=== PATIENT | female | born 2000 | race Caucasian/White ===

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

== ENCOUNTER 2020-10-21 22:30 | Emergency (ER) | payer MEDICAID ==
[~2020-10-21] VITALS: Ht 160 cm; Wt 86.4 kg
[~2020-10-21 22:30] MED LIST changes: +MACROBID 1100 MG/CAP PO; +ZOFRAN ODT4 MG SL
[2020-10-21 22:35] VITALS: TEMP 98.6
[2020-10-21 23:44] VITALS: BP 105/61; PULSE 75
== END 2020-10-21 23:46 | disposition home or self-care (01) ==
LOC: COL.ER 22:30
DX: S61.302A Unspecified open wound of right middle finger with damage to nail, initial encounter (principal); F17.290 Nicotine dependence, other tobacco product, uncomplicated; W45.0XXA Nail entering through skin, initial encounter